=== PATIENT | female | born 1930 | race Caucasian/White ===

== ENCOUNTER → 2016-08-12 | Day surgery (SDC) | payer OTHER ==
[~2016-08-12] MED LIST: ACET500T68 PO; AMLO5TAB2 PO; CYAN10002 IM; DULO30CA2 PO; EPHEDRINE PF IN SALINE 50 MG/5 ML DISP.SYRIN. IV ONE; FENTANYL PF 100 MCG/2 ML VIAL. IV PRN; HYDR-2666 PO; HYDROMORPHONE 2 MG/ML VIAL. IV PRN; IV RINGERS,LACTATED 1000ML 1,000 ML IV SCH; LANS30CA PO; LIDOCAINE 1% 1 ML SYRINGE. ID PRN; LIDOCAINE 2% PF Vial for OR 5 ML VIAL. ONE; METO25TA4 PO; MORPHINE SULFATE 2 MG/ML DISP.SYRIN. IV PRN; ONDANSETRON PF 4 MG/2 ML VIAL. IV PRN; PROCHLORPERAZINE 10 MG/2 ML VIAL. IV PRN; PROPOFOL 40 ML IV ONE
[2016-08-12 08:36] VITALS: BP 139/69
--- NOTE | 2016-08-12 20:34 | HP ---
ADMIT DATE: 08/12/2016 REFERRING: Chris Aguayo DO HISTORY OF PRESENT ILLNESS: An 85-year-old female whose past medical history is significant for rectal cancer as well as hypertension, gastroesophageal reflux disease and pernicious anemia who is seen for surveillance colonoscopy. She had a recent colon cancer resected without the need for adjuvant chemotherapy or radiation. She subsequently has had a takedown and is here for surveillance exam. Weight and appetite are stable. There has been no bleeding. She is otherwise without additional complaints. PAST MEDICAL HISTORY: Rectal cancer, hypertension, pernicious anemia, gastroesophageal reflux disease. ALLERGIES: None. MEDICATIONS: Include amlodipine, vitamin B12, Cymbalta, hydrocodone, Prevacid, and metoprolol. FAMILY AND SOCIAL HISTORY: She is a nondrinker, former smoker. She has had previous back surgery, hysterectomy and colon resection. REVIEW OF SYSTEMS: Per records. PHYSICAL EXAMINATION: GENERAL: Reveals a thin female who is alert, conversant in mild distress. VITAL SIGNS: Temperature 98.4, pulse 58, respirations 20. HEENT: Normocephalic and atraumatic head. Pupils and extraocular muscles are not tested. Sclerae anicteric. NECK: Supple. LUNGS: Clear. CARDIOVASCULAR: Reveals an S1, S2 without S3, S4 or appreciable murmur. ABDOMEN: Reveals a soft abdomen, normal bowel sounds, without appreciable hepatosplenomegaly with an intact surgical incision. EXTREMITIES: Reveals no cyanosis, clubbing or edema. IMPRESSION: History of colon cancer. Surveillance exam is recommended at this time. Risks and benefits of procedure including the risk of hemorrhage or perforation during the operation have been discussed with the patient and family, and they are willing to proceed. I would like to thank Dr. Aguayo for allowing us to consult and participate in the patient's care. DOMENIC VALE MD DR: WILLIAM/kana JOB#: [id number] / [id number] Philipp Tijerina DO
== END ==
LOC: ENDOS 07:14
PROVIDERS: ATTEND Internal Medicine Gastroenterology
DX: K64.0 First degree hemorrhoids (principal); Z98.0 Intestinal bypass and anastomosis status; I10 Essential (primary) hypertension; J44.9 Chronic obstructive pulmonary disease, unspecified; Z90.710 Acquired absence of both cervix and uterus; Z87.39 Personal history of other diseases of the musculoskeletal system and connective tissue
CPT/HCPCS: 45378; J2704

== ENCOUNTER 2017-02-02 18:21 | Emergency (ER) | payer OTHER ==
[~2017-02-02] VITALS: Ht 162.6 cm; Wt 44.5 kg
[~2017-02-02 18:21] MED LIST changes: +AMLO5TAB4 PO; +BACL10TA PO; +CYAN10005 PO; +DICL100G18 TP; +DOCU-109 PO; -EPHEDRINE PF IN SALINE 50 MG/5 ML DISP.SYRIN. IV ONE; +FENT1PAT13 TD; -FENTANYL PF 100 MCG/2 ML VIAL. IV PRN; -HYDR-2666 PO; +HYDR-2758 PO; +HYDR28.423 TP; -HYDROMORPHONE 2 MG/ML VIAL. IV PRN; +IBUP100O24 PO; -IV RINGERS,LACTATED 1000ML 1,000 ML IV SCH; +LANS15CA78 PO; -LIDOCAINE 1% 1 ML SYRINGE. ID PRN; -LIDOCAINE 2% PF Vial for OR 5 ML VIAL. ONE; +LOPE2CAP PO; +LORA0.5T96 PO; +MEGE40TA PO; +METO-239 PO; -MORPHINE SULFATE 2 MG/ML DISP.SYRIN. IV PRN; -ONDANSETRON PF 4 MG/2 ML VIAL. IV PRN; +OXYC-323 PO; +PHEN1SUP5 RC; -PROCHLORPERAZINE 10 MG/2 ML VIAL. IV PRN; -PROPOFOL 40 ML IV ONE; +SENN1TAB15 PO; +SIME125C65 PO
[2017-02-02 18:26] VITALS: BP 117/65
--- NOTE | 2017-02-02 19:41 | RAD ---
CT PELVIS WO CONTRAST dated 02/02/2017 7:16 PM Indication: Fall, previous right hip surgery 01/14 Comparison: None other than CT abdomen and pelvis August 14, 2015. Technique: CT imaging was performed of the[pelvis], multiplanar reconstruction images submitted. One or more of the following individualized dose reduction techniques were utilized for this examination: 1. Automated exposure control 2. Adjustment of the mA and/or kV according to patient size 3. Use of iterative reconstruction technique. Findings: There is right femoral intramedullary boris, two proximal screws traversing somewhat comminuted intertrochanteric fracture of the right femur. There is also a displaced bone fragment located slightly anterior to the medial aspect of the proximal right femur, may arise from the lesser trochanter. There is old healed fracture of the left inferior pubic ramus. There is bone demineralization. There is facet degenerative change at L5-S1. There is superior L5 compression fracture not seen on previous CT, no significant osseous retropulsion. There is also mild superior L4 compression deformity, not seen previously. There is atherosclerotic calcification of the visualized abdominal aorta and iliac arteries. There is body wall edema. Urinary bladder is somewhat distended. There is retained stool in the colon. IMPRESSION: 1. There is hardware traversing comminuted intertrochanteric fracture of the right femur, also displaced fragment more anteriorly which may arise from the lesser trochanter 2. There is L5 and to lesser degree L4 compression deformity of uncertain age, could be more recent. Electronically signed by: Billy Arita MD (02/02/2017 7:38 PM) [facility]
--- NOTE | 2017-02-02 20:57 | PHYS DOC ---
Past Medical History Past Medical History: Anemia, Anxiety, Depression, GERD, Hypertension Additional Past Medical Histor: CHRONIC LOWER BACK PAIN, RA Past Surgical History: Hysterectomy, Other Additional Past Surgical Histo: BACK, COLON RESECTION Alcohol Use: None Drug Use: None Adult General Chief Complaint Chief Complaint: MECHANICAL FALL HPI HPI 86-year-old female presenting to the emergency department after falling at her jail in [facility]. She was going to sit down in a wheelchair when she slipped and fell onto the floor from approximately standing height. She had mild pain and recently had hip replacement in December. She was sent here for evaluation of possible worsening injury. She has pain in her right hip that is sharp moderate nonradiating intermittent and without alleviating factors. She denies any other injuries. She denies head injury. She is not on blood thinners. Review of systems is negative for chest pain shortness of breath abdominal pain nausea vomiting. She denies head injury seizures numbness weakness or tingling. She denies loss of consciousness. All other review of systems is negative unless otherwise noted in history of present illness. ED course: 86-year-old female presenting after falling from standing height from a mechanical fall. Patient has pain in the right hip. Vital signs afebrile with a normal heart rate. Pertinent physical examination findings show pain with passive range of motion of the right hip. Palpable pulse distally. Nontender knee with normal range of motion. Nontender back. No step-offs abrasions ecchymosis or lacerations. No other traumatic injuries found on secondary survey. CT of the hip shows no acute changes from recent hip replacement. Patient was able to ambulate in the emergency department without difficulty. Patient was in discharged home back to nursing care facility. The patient was then discharged home in stable condition to follow up with their primary care physician over the next 2-3 days. They were to return if their symptoms worsened or if they were concerned for any reason. [id number] discharge instructions and return precautions were given. Patient's questions were answered to their satisfaction. Patient is comfortable plan. Review of Systems Review of Systems SEE ABOVE. Allergies Allergies Allergies Coded Allergies Type Severity Reaction Last Updated Verified No Known Drug Allergies 08/12/16 No Physical Exam Physical Exam SEE ABOVE Constitutional: Well developed, well nourished, no acute distress, non-toxic appearance. [] HENT: Normocephalic, atraumatic, bilateral external ears normal, oropharynx moist, no oral exudates, nose normal. Eyes: PERRLA, EOMI, conjunctiva normal, no discharge. [] Neck: Normal range of motion, no tenderness, supple, no stridor. Cardiovascular:Heart rate regular rhythm, no murmur [] Lungs & Thorax: Bilateral breath sounds clear to auscultation Abdomen: Bowel sounds normal, soft, no tenderness, no masses, no pulsatile masses. Skin: Warm, dry, no erythema, no rash. [] Back: No tenderness, no CVA tenderness. [] Extremities: See above. Otherwise atraumatic with normal range of motion in the remainder the extremities. 2 sec cap refill. Neurologic: Alert and oriented X 3, normal motor function, normal sensory function, no focal deficits noted. Psychologic: Affect normal, judgement normal, mood normal. [] Current Patient Data Vital Signs Vital Signs Date Time Temp Pulse Resp B/P (MAP) Pulse Ox O2 Delivery O2 Flow Rate FiO2 02/02/17 18:26 98.4 72 18 117/65 (82) 98 Room Air 98.4 EKG EKG [] Radiology/Procedures Radiology/Procedures [] Course & Med Decision Making Course & Med Decision Making Pertinent Labs and Imaging studies reviewed. (See chart for details) [] Dragon Disclaimer Dragon Disclaimer This electronic medical record was generated, in whole or in part, using a voice recognition dictation system. Departure Departure Impression: Primary Impression: Right hip pain Disposition: HOME, SELF-CARE Condition: STABLE Referrals: FREDDY RAE (PCP) Patient Instructions: Hip Pain Additional Instructions: Thank you for allowing us to participate in your care today. Followup with your primary care physician in 3 days if your symptoms do not improve. Call your Primary Doctor tomorrow and inform them of your visit today. If you do not have a primary care provider you can ask for a list of our primary care providers. Return to the emergency department you have any new or concerning findings. This should be evaluated by the primary care physician and any necessary consulting services for continued management within a few days after discharge. Return to emergency room if you have any new or concerning symptoms including but not limited to fever, chills, nausea, vomiting, intractable pain, any new rashes, chest pain, shortness of air, uncontrolled bleeding, difficulty breathing, and/or vision loss. EMI KHAN MD Feb 02, 2017 20:57
== END 2017-02-02 21:50 | disposition home or self-care (01) ==
LOC: ER 18:21
DX: M25.551 Pain in right hip (principal); I10 Essential (primary) hypertension; K21.9 Gastro-esophageal reflux disease without esophagitis; G89.29 Other chronic pain; M54.5 Low back pain; M06.9 Rheumatoid arthritis, unspecified; W01.0XXA Fall on same level from slipping, tripping and stumbling without subsequent striking against object, initial encounter; Y93.89 Activity, other specified; Y92.89 Other specified places as the place of occurrence of the external cause; Y99.8 Other external cause status
CPT/HCPCS: 72192; 99284-25

== ENCOUNTER 2017-06-23 11:33 | Inpatient (IN) | payer MEDICARE, OTHER ==
[2017-06-23 11:56] LABS: ADD MAN DIFF? NO
[2017-06-23] MEDS: IV NORMAL SALINE 1000ML BAG 500 ML IV (11:57)
[2017-06-23] MEDS: dilTIAZem IV PUSH 25 MG/5 ML VIAL IVP (12:00)
[2017-06-23] MEDS: IPRATRPIUM/ALBUTEROL 0.5/2.5MG 3 ML NEBU. NEB (12:02)
[2017-06-23] MEDS: dilTIAZem VIAL 125 MG in IV DEXTROSE 5% 100 ML IV (12:12)
[2017-06-23 12:15] LABS: BASE EXCESS ABG -7 mmol/L (-3-3); HCO3 ABG 18 mmol/L (21-28); PCO2 ABG 32 mmHg (35-46); PH ABG 7.35 (7.35-7.45); PO2 ABG 57 mmHg (65-108); SAT O2 ABG 87 % (92-99)
[2017-06-23 12:17] LABS: ANION GAP 18 (6-14); BASO % 0 % (0-3); BLOOD UREA NITROGEN 58 mg/dL (7-20); CALCIUM 10.8 mg/dL (8.5-10.1); CARBON DIOXIDE 20 mmol/L (21-32); CHLORIDE 102 mmol/L (98-107); CREATININE 1.6 mg/dL (0.6-1.0); EOS % 0 % (0-3); GFR 30.6; GLUCOSE 234 mg/dL (70-99); HEMATOCRIT 35.8 % (36.0-47.0); HEMOGLOBIN 11.7 g/dL (12.0-15.5); LYMPH % 14 % (24-48); MEAN CORPUSCULAR HEMOGLOBIN 29 pg (25-35); MEAN CORPUSCULAR HGB CONC 33 g/dL (31-37); MEAN CORPUSCULAR VOLUME 88 fL (79-100); MONO # 0.5 x10^3/uL (0.0-1.1); MONO % 7 % (0-9); NEUT # 5.7 x10^3uL (1.8-7.7); NEUT % 79 % (31-73); PLATELET COUNT 491 x10^3/uL (140-400); POTASSIUM 4.6 mmol/L (3.5-5.1); RED BLOOD COUNT 4.05 x10^6/uL (3.50-5.40); SODIUM 140 mmol/L (136-145); WHITE BLOOD COUNT 7.3 x10^3/uL (4.0-11.0)
[2017-06-23 12:19] LABS: ALBUMIN 3.2 g/dL (3.4-5.0); ALK PHOS 86 U/L (46-116); ALT (SGPT) 13 U/L (14-59); AST (SGOT) 17 U/L (15-37); DIRECT BILIRUBIN 0.4 mg/dL (0.0-0.2); LIPASE 40 U/L (73-393); MAGNESIUM 2.3 mg/dL (1.8-2.4); TOTAL BILIRUBIN 0.7 mg/dL (0.2-1.0); TOTAL PROTEIN 8.3 g/dL (6.4-8.2)
[2017-06-23 12:21] LABS: TROPONINI 0.198 ng/mL (0.000-0.055)
[2017-06-23 12:27] LABS: CKMB INDEX 2.4 % (0-4); CKMB MASS 1.8 ng/mL (0.0-3.6); CREATINE KINASE 75 U/L (26-192)
[2017-06-23 12:28] LABS: NT-PRO BNP > 35000 pg/mL (0-449)
[2017-06-23 12:29] LABS: INR 1.2 (0.8-1.1); PROTHROMBIN TIME PATIENT 14.8 SEC (11.7-14.0)
[2017-06-23 13:05] LABS: INFLUENZA A PATIENT NEGATIVE (NEGATIVE); INFLUENZA B PATIENT NEGATIVE (NEGATIVE); OBC FLU VALID
[2017-06-23] MEDS: DIGOXIN IV 500 MCG/2 ML AMPUL. IV ×2 (14:45→20:11)
[2017-06-23 14:51] LABS: BARBITURATES NEG (NEG); BENZODIAZEPINES NEG (NEG); CANNABINOIDS NEG (NEG); COCAINE NEG (NEG); METHADONE NEG (NEG); OPIATES POS (NEG); PHENCYCLIDINE NEG (NEG)
[2017-06-23 14:55] LABS: AMPHETAMINE/METHAMPHETAMINE NEG (NEG); ETHANOL, URINE NEG (NEG)
[2017-06-23 15:22] LABS: CHOLESTEROL 94 mg/dL (0-200); HDLC 17 mg/dL (40-60); LDLC 60 mg/dL (0-100); NON-HDL CHOLESTEROL 77 mg/dL (0-129); TRIGLYCERIDES 86 mg/dL (0-150); VLDLC 17 mg/dL (0-40)
[2017-06-23 15:24] LABS: CHOLESTEROL/HDL RATIO 5.5
[2017-06-23] MEDS ORDERED: AZITHRMYCN 500MG IVPB FOR OMNI 250 ML IV (15:30)
[2017-06-23] MEDS: FUROSEMIDE 20 MG/2 ML VIAL. IVP ×2 (16:47→23:04)
[2017-06-23] MEDS: PIPERACILLIN/TAZOBACTAM 2.25 GM in IV NORMAL SALINE 50ML 50 ML IV (17:46)
[2017-06-23] MEDS ORDERED: PIPERACILLIN/TAZOBACTAM 3.375 GM in IV NORMAL SALINE 50ML 50 ML IV (18:00)
[2017-06-23 18:29] LABS: LACTIC ACID 1.7 mmol/L (0.4-2.0)
[2017-06-23] MEDS: AZITHROMYCIN 500 MG in IV NORMAL SALINE 250ML 250 ML IV (18:32)
[2017-06-23 19:21] LABS: TROPONINI 0.164 ng/mL (0.000-0.055)
[2017-06-23] MEDS: ONDANSETRON PF 4 MG/2 ML VIAL. IV (19:25)
[2017-06-24] MEDS: PIPERACILLIN/TAZOBACTAM 2.25 GM in IV NORMAL SALINE 50ML 50 ML IV ×5 (00:40→23:48)
[2017-06-24 01:51] LABS: ADD MAN DIFF? NO
[2017-06-24 02:06] LABS: BASO % 0 % (0-3); EOS % 0 % (0-3); HEMATOCRIT 32.7 % (36.0-47.0); HEMOGLOBIN 10.5 g/dL (12.0-15.5); LYMPH % 15 % (24-48); MEAN CORPUSCULAR HEMOGLOBIN 28 pg (25-35); MEAN CORPUSCULAR HGB CONC 32 g/dL (31-37); MEAN CORPUSCULAR VOLUME 88 fL (79-100); MONO # 0.6 x10^3/uL (0.0-1.1); MONO % 10 % (0-9); NEUT % 76 % (31-73); PLATELET COUNT 413 x10^3/uL (140-400); RED BLOOD COUNT 3.71 x10^6/uL (3.50-5.40); RED CELL DISTRIBUTION WIDTH 13.9 % (11.5-14.5); WHITE BLOOD COUNT 6.6 x10^3/uL (4.0-11.0)
[2017-06-24 02:13] LABS: MRSA BY PCR Negative (Negative)
[2017-06-24 02:22] LABS: ANION GAP 18 (6-14); BLOOD UREA NITROGEN 69 mg/dL (7-20); CALCIUM 9.8 mg/dL (8.5-10.1); CARBON DIOXIDE 18 mmol/L (21-32); CHLORIDE 109 mmol/L (98-107); CREATININE 1.6 mg/dL (0.6-1.0); GFR 30.6; GLUCOSE 126 mg/dL (70-99); POTASSIUM 4.9 mmol/L (3.5-5.1); SODIUM 145 mmol/L (136-145)
[2017-06-24 02:33] LABS: TROPONINI 0.293 ng/mL (0.000-0.055)
[2017-06-24] MEDS: AMIODARONE 150 MG in IV DEXTROSE 5% 100 ML IV (03:26)
[2017-06-24] MEDS: IV NORMAL SALINE 500ML BAG 500 ML IV (06:20)
[2017-06-24] MEDS: ASPIRIN ENTERIC COATED 81 MG TABLET.DR. PO (08:00)
[2017-06-24] MEDS: IV NORMAL SALINE 1000ML BAG 1,000 ML IV ×2 (10:14→21:10)
[2017-06-24] MEDS: DAPTOMYCIN IV (13:19)
[2017-06-24] MEDS: NORMAL SALINE IV (13:19)
[2017-06-24] MEDS: METOPROLOL TARTRATE 5 MG/5 ML VIAL. IVP ×3 (13:19→23:49)
[2017-06-24 15:30] LABS: MAGNESIUM 2.1 mg/dL (1.8-2.4)
[2017-06-24 15:38] LABS: LACTIC ACID 1.2 mmol/L (0.4-2.0)
[2017-06-24] MEDS ORDERED: cefTRIAXone IV Push 1 GM VIAL. IVP (16:00)
[2017-06-24] MEDS: fentaNYL PF VIAL 100 MCG/2 ML VIAL IV (17:09)
[2017-06-24] MEDS: LACTOBACILLUS RHAMNOSUS GG 1 CAPSULE. PO ×2 (21:00→21:10)
[2017-06-25 04:53] LABS: ADD MAN DIFF? NO
[2017-06-25 05:13] LABS: BASO % 0 % (0-3); EOS % 0 % (0-3); HEMATOCRIT 33.3 % (36.0-47.0); LYMPH # 1.1 x10^3/uL (1.0-4.8); LYMPH % 12 % (24-48); MEAN CORPUSCULAR HEMOGLOBIN 29 pg (25-35); MEAN CORPUSCULAR HGB CONC 33 g/dL (31-37); MEAN CORPUSCULAR VOLUME 89 fL (79-100); MONO # 0.9 x10^3/uL (0.0-1.1); MONO % 10 % (0-9); NEUT # 7.4 x10^3uL (1.8-7.7); NEUT % 79 % (31-73); PLATELET COUNT 385 x10^3/uL (140-400); RED BLOOD COUNT 3.76 x10^6/uL (3.50-5.40); WHITE BLOOD COUNT 9.4 x10^3/uL (4.0-11.0)
[2017-06-25 05:29] LABS: ALBUMIN 2.5 g/dL (3.4-5.0); ALBUMIN/GLOBULIN RATIO 0.6 (1.0-1.7); ALK PHOS 65 U/L (46-116); ALT (SGPT) 14 U/L (14-59); ANION GAP 17 (6-14); AST (SGOT) 26 U/L (15-37); BLOOD UREA NITROGEN 56 mg/dL (7-20); BUN/CREATININE RATIO 47 (6-20); CALCIUM 9.9 mg/dL (8.5-10.1); CARBON DIOXIDE 19 mmol/L (21-32); CHLORIDE 119 mmol/L (98-107); CREATININE 1.2 mg/dL (0.6-1.0); GFR 42.7; GLUCOSE 108 mg/dL (70-99); POTASSIUM 3.7 mmol/L (3.5-5.1); SODIUM 155 mmol/L (136-145); TOTAL BILIRUBIN 0.6 mg/dL (0.2-1.0); TOTAL PROTEIN 6.8 g/dL (6.4-8.2)
[2017-06-25] MEDS: PIPERACILLIN/TAZOBACTAM 2.25 GM in IV NORMAL SALINE 50ML 50 ML IV ×4 (06:02→23:38)
[2017-06-25] MEDS: METOPROLOL TARTRATE 5 MG/5 ML VIAL. IVP ×4 (06:03→23:39)
[2017-06-25] MEDS: ASPIRIN ENTERIC COATED 81 MG TABLET.DR. PO (07:36)
[2017-06-25] MEDS: LACTOBACILLUS RHAMNOSUS GG 1 CAPSULE. PO ×2 (07:36→20:45)
[2017-06-25] MEDS ORDERED: ACETAMINOPHEN 120 MG SUPP.RECT. PR (09:00)
[2017-06-25] MEDS ORDERED: ONDANSETRON PF 4 MG/2 ML VIAL. IV (09:00)
[2017-06-25] MEDS ORDERED: ACETAMINOPHEN 325 MG SUPP.RECT. PR (09:01)
[2017-06-25] MEDS: DIGOXIN IV 500 MCG/2 ML AMPUL. IV (10:03)
[2017-06-25] MEDS: IV DEXTROSE 5% 1,000 ML IV (10:04)
[2017-06-25] MEDS: AMINO AC 3%/ELECTROLYTE/GLYCER 1,000 ML IV (10:45)
[2017-06-25] MEDS ORDERED: MAGNESIUM SULFATE 2GM 50 ML IV (11:00)
[2017-06-25] MEDS: fentaNYL PF VIAL 100 MCG/2 ML VIAL IV (11:24)
[2017-06-25 11:31] LABS: % SAT IRON 7 % (15-34); IRON,SERUM 13 ug/dL (50-170)
[2017-06-25 11:45] LABS: FERRITIN 295 ng/mL (8-252)
[2017-06-25 12:46] LABS: RETIC COUNT 0.7 % (0.5-2.5)
[2017-06-26] MEDS: AMINO AC 3%/ELECTROLYTE/GLYCER 1,000 ML IV ×3 (03:32→17:47)
[2017-06-26 04:24] LABS: MAGNESIUM 2.2 mg/dL (1.8-2.4)
[2017-06-26 04:27] LABS: ALBUMIN 2.4 g/dL (3.4-5.0); ANION GAP 16 (6-14); BLOOD UREA NITROGEN 48 mg/dL (7-20); CALCIUM 10.1 mg/dL (8.5-10.1); CARBON DIOXIDE 17 mmol/L (21-32); CHLORIDE 118 mmol/L (98-107); CREATININE 1.1 mg/dL (0.6-1.0); GFR 47.2; GLUCOSE 157 mg/dL (70-99); PHOSPHORUS 2.3 mg/dL (2.6-4.7); POTASSIUM 3.4 mmol/L (3.5-5.1); SODIUM 151 mmol/L (136-145)
[2017-06-26 05:03] LABS: ADD MAN DIFF? NO
[2017-06-26 05:04] LABS: BASO % 0 % (0-3); EOS % 0 % (0-3); HEMATOCRIT 30.2 % (36.0-47.0); HEMOGLOBIN 10.1 g/dL (12.0-15.5); LYMPH # 1.4 x10^3/uL (1.0-4.8); LYMPH % 18 % (24-48); MEAN CORPUSCULAR HEMOGLOBIN 30 pg (25-35); MEAN CORPUSCULAR HGB CONC 33 g/dL (31-37); MEAN CORPUSCULAR VOLUME 89 fL (79-100); MONO # 0.9 x10^3/uL (0.0-1.1); MONO % 12 % (0-9); NEUT # 5.6 x10^3uL (1.8-7.7); NEUT % 70 % (31-73); PLATELET COUNT 351 x10^3/uL (140-400); RED BLOOD COUNT 3.41 x10^6/uL (3.50-5.40); RED CELL DISTRIBUTION WIDTH 14.1 % (11.5-14.5)
[2017-06-26] MEDS: METOPROLOL TARTRATE 5 MG/5 ML VIAL. IVP ×4 (06:08→23:04)
[2017-06-26] MEDS: PIPERACILLIN/TAZOBACTAM 2.25 GM in IV NORMAL SALINE 50ML 50 ML IV ×4 (06:09→23:04)
[2017-06-26] MEDS: ASPIRIN ENTERIC COATED 81 MG TABLET.DR. PO (07:50)
[2017-06-26] MEDS: LACTOBACILLUS RHAMNOSUS GG 1 CAPSULE. PO ×2 (07:50→20:22)
[2017-06-26] MEDS: fentaNYL PF VIAL 100 MCG/2 ML VIAL IV (09:36)
[2017-06-26] MEDS: POTASSIUM CHLORIDE 30 MEQ in IV 1/2 NORMAL SALINE 1,000 ML IV (11:49)
[2017-06-26] MEDS: IRON SUCROSE COMPLEX 500 MG in IV NORMAL SALINE 250ML 250 ML IV (12:34)
[2017-06-26] MEDS ORDERED: SALIVA STIMULANT AGENT 44ML SPRAY BOTTLE. PO (12:45)
[2017-06-27] MEDS: PIPERACILLIN/TAZOBACTAM 2.25 GM in IV NORMAL SALINE 50ML 50 ML IV ×2 (05:05→11:35)
[2017-06-27] MEDS: METOPROLOL TARTRATE 5 MG/5 ML VIAL. IVP ×2 (05:05→11:35)
[2017-06-27] MEDS: AMINO AC 3%/ELECTROLYTE/GLYCER 1,000 ML IV ×2 (05:05→13:22)
[2017-06-27 05:31] LABS: BASO % 0 % (0-3); EOS # 0.1 x10^3/uL (0.0-0.7); EOS % 1 % (0-3); HEMATOCRIT 32.2 % (36.0-47.0); HEMOGLOBIN 10.6 g/dL (12.0-15.5); LYMPH # 1.6 x10^3/uL (1.0-4.8); LYMPH % 18 % (24-48); MEAN CORPUSCULAR HEMOGLOBIN 29 pg (25-35); MEAN CORPUSCULAR HGB CONC 33 g/dL (31-37); MEAN CORPUSCULAR VOLUME 88 fL (79-100); MONO # 0.7 x10^3/uL (0.0-1.1); MONO % 7 % (0-9); NEUT # 6.6 x10^3uL (1.8-7.7); NEUT % 74 % (31-73); PLATELET COUNT 402 x10^3/uL (140-400); RED BLOOD COUNT 3.68 x10^6/uL (3.50-5.40); RED CELL DISTRIBUTION WIDTH 14.1 % (11.5-14.5)
[2017-06-27 05:36] LABS: ADD MAN DIFF? YES
[2017-06-27 06:13] LABS: ALBUMIN 2.6 g/dL (3.4-5.0); ANION GAP 12 (6-14); BLOOD UREA NITROGEN 31 mg/dL (7-20); CALCIUM 9.3 mg/dL (8.5-10.1); CARBON DIOXIDE 24 mmol/L (21-32); CHLORIDE 113 mmol/L (98-107); CREATININE 0.7 mg/dL (0.6-1.0); GFR 79.5; GLUCOSE 147 mg/dL (70-99); PHOSPHORUS 1.7 mg/dL (2.6-4.7); POTASSIUM 3.6 mmol/L (3.5-5.1); SODIUM 149 mmol/L (136-145)
[2017-06-27 06:19] LABS: MAGNESIUM 2.1 mg/dL (1.8-2.4)
[2017-06-27] MEDS: ASPIRIN ENTERIC COATED 81 MG TABLET.DR. PO (07:02)
[2017-06-27] MEDS: LACTOBACILLUS RHAMNOSUS GG 1 CAPSULE. PO ×2 (07:02→18:09)
[2017-06-27 07:59] LABS: % BANDS 19 % (0-9); % LYMPHS 13 % (24-48); % METAS 1 % (0-0); % MONOS 7 % (0-10); % SEGS 60 % (35-66); NUCLEATED RBC 3
[2017-06-27 08:00] LABS: PLT ESTIMATE INCREASED (ADEQUATE)
[2017-06-27] MEDS: POTASSIUM PHOSPHATE DIBASIC 10 MMOL in IV DEXTROSE 5% 100 ML IV ×2 (12:33→14:00)
[2017-06-27] MEDS: SCOPOLAMINE 1.5MG PATCH. TD (15:06)
[2017-06-27] MEDS: MORPHINE SULFATE 20 MG/ML CONC SOLUTION. SL (18:07)
[2017-06-27] MEDS: LORazepam INTENSOL 2 MG/ML ORAL.CONC SL (20:05)
[2017-06-28] MEDS: MORPHINE SULFATE 20 MG/ML CONC SOLUTION. SL ×3 (12:54→21:42)
[2017-06-30] MEDS ORDERED: SCOPOLAMINE 1.5MG PATCH. TD (09:00)
== END 2017-06-29 12:30 | DRG 871 ==
LOC: 5 NORTH 06-24 19:20 → ER 11:33 → ED HOLD 13:00 → 1 WEST ICU 15:40
PROVIDERS: Family Medicine
DX: A41.01 Sepsis due to Methicillin susceptible Staphylococcus aureus (principal); J18.9 Pneumonia, unspecified organism; J96.21 Acute and chronic respiratory failure with hypoxia; N17.0 Acute kidney failure with tubular necrosis; R57.0 Cardiogenic shock; G93.41 Metabolic encephalopathy; I50.33 Acute on chronic diastolic (congestive) heart failure; R13.10 Dysphagia, unspecified; I13.0 Hypertensive heart and chronic kidney disease with heart failure and stage 1 through stage 4 chronic kidney disease, or unspecified chronic kidney disease; E44.1 Mild protein-calorie malnutrition; Z68.1 Body mass index [BMI] 19.9 or less, adult; E87.0 Hyperosmolality and hypernatremia; I42.9 Cardiomyopathy, unspecified; J44.0 Chronic obstructive pulmonary disease with (acute) lower respiratory infection; J44.1 Chronic obstructive pulmonary disease with (acute) exacerbation; N39.0 Urinary tract infection, site not specified; I48.91 Unspecified atrial fibrillation; E86.0 Dehydration; I27.20 Pulmonary hypertension, unspecified; B96.20 Unspecified Escherichia coli [E. coli] as the cause of diseases classified elsewhere; B96.89 Other specified bacterial agents as the cause of diseases classified elsewhere; D63.8 Anemia in other chronic diseases classified elsewhere; E61.1 Iron deficiency; E87.6 Hypokalemia; F03.90 Unspecified dementia, unspecified severity, without behavioral disturbance, psychotic disturbance, mood disturbance, and anxiety; K21.9 Gastro-esophageal reflux disease without esophagitis; M81.0 Age-related osteoporosis without current pathological fracture; N18.9 Chronic kidney disease, unspecified; Z66 Do not resuscitate; Z82.3 Family history of stroke; Z85.048 Personal history of other malignant neoplasm of rectum, rectosigmoid junction, and anus; Z87.891 Personal history of nicotine dependence; Z90.710 Acquired absence of both cervix and uterus; Z99.3 Dependence on wheelchair; F32.9 Major depressive disorder, single episode, unspecified; F41.9 Anxiety disorder, unspecified; G89.29 Other chronic pain; M06.9 Rheumatoid arthritis, unspecified; Z82.49 Family history of ischemic heart disease and other diseases of the circulatory system; Z51.5 Encounter for palliative care; J84.10 Pulmonary fibrosis, unspecified
CPT/HCPCS: 31720; 36415; 36600; 51702; 71045; 80048; 80053; 80061; 80069; 80076; 80307; 82553; 82728; 82805; 83540; 83550; 83605; 83690; 83735; 83880; 84443; 84484; 85007; 85025; 85045; 85610; 87040; 87086; 87186; 87205; 87641; 87804; 87804-59; 92526-GN; 92610-GN; 93005; 93306; 94640; 96365; 96366; 96367; 96375; 97161-GP; 97165-GO; 99291-25; J0282; J0456; J0690; J0878; J1160; J1756; J2060; J2405; J2543; J3010; J3490; J7030; J7040; J7050; J7620